=== PATIENT | male | born 1950 ===

== ENCOUNTER → 2017-11-12 | Outpatient (CLI) | payer OTHER | LOC: BHLMT 09:15 | PROVIDERS: ATTEND Internal Medicine Cardiovascular Disease | DX: I25.10 Atherosclerotic heart disease of native coronary artery without angina pectoris (principal) | CPT/HCPCS: 93306-PO ==

== ENCOUNTER → 2018-12-09 | Outpatient (CLI) | payer OTHER | LOC: BHLMT 15:00 | PROVIDERS: ATTEND Internal Medicine Cardiovascular Disease | DX: I25.10 Atherosclerotic heart disease of native coronary artery without angina pectoris (principal) | CPT/HCPCS: 93005-PO ==